=== PATIENT | male | born 1985 | race Caucasian/White ===

== ENCOUNTER 2017-05-15 16:37 | Emergency (ER) | payer OTHER ==
[~2017-05-15] VITALS: Ht 180.3 cm; Wt 81.6 kg
[2017-05-15 16:51] VITALS: BP 136/74
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
== END 2017-05-15 18:17 | disposition home or self-care (01) ==
LOC: ER 16:37
DX: S09.90XA Unspecified injury of head, initial encounter (principal); Y08.89XA Assault by other specified means, initial encounter; Y93.89 Activity, other specified; Y99.8 Other external cause status; Y92.89 Other specified places as the place of occurrence of the external cause
CPT/HCPCS: 70450; 99284-25

== ENCOUNTER 2017-06-30 19:40 | Emergency (ER) | payer OTHER ==
[~2017-06-30] VITALS: Ht 180.3 cm; Wt 83.5 kg
[2017-06-30 19:54] VITALS: BP 127/68
[2017-06-30] MEDS ORDERED: CIPROFLOXACIN HCL 500 MG TABLET PO ONE (20:30)
[2017-06-30] MEDS ORDERED: IBUPROFEN 600 MG TABLET. PO ONE ×2 (20:30→20:38)
[2017-06-30] MEDS ORDERED: CIPR500T94 PO (20:31)
[2017-06-30] MEDS ORDERED: IBUP800T19 PO (20:31)
--- NOTE | 2017-06-30 20:31 | PHYS DOC ---
Past History Past Medical History: No Pertinent History Past Surgical History: Appendectomy Alcohol Use: Rarely Drug Use: None Adult General Chief Complaint Chief Complaint: TESTICULAR PAIN HPI HPI Patient is a 32-year-old male complaining of right testicle pain for about 2 days. No injury. He's never had this before. Denies dysuria, denies discharge. Denies swelling. Patient is in good general health. He does do physical training daily. 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 Review of Systems Review of Systems GI: Denies abdominal pain, nausea, vomiting : Denies dysuria or discharge Allergies Allergies Allergies Coded Allergies Type Severity Reaction Last Updated Verified No Known Drug Allergies 05/15/17 No Physical Exam Physical Exam Constitutional: Well developed, well nourished, no acute distress, non-toxic appearance. Alert, ambulatory without difficulty, warm and dry, no acute distress. HENT: Normocephalic, atraumatic, bilateral external ears normal, nose normal. [ ] Eyes: conjunctiva normal, no discharge. [] Neck: Normal range of motion, no stridor. [] : Normal circumcised male appearance. Right testicle is not enlarged or tender. There is tenderness to palpation of the right epididymis. There is minimal swelling of the right epididymis. No skin color changes or skin abnormalities of the scrotum. No swelling of the scrotum. Skin: Warm, dry, no erythema, no rash. [] Extremities: No tenderness, no cyanosis, no clubbing, ROM intact, no edema. [] Neurologic: Alert and oriented X 3, normal motor function, no focal deficits noted. [] Current Patient Data Vital Signs Vital Signs Date Time Temp Pulse Resp B/P (MAP) Pulse Ox O2 Delivery O2 Flow Rate FiO2 06/30/17 19:54 98.5 54 17 99 EKG EKG [] Radiology/Procedures Radiology/Procedures [] Course & Med Decision Making Course & Med Decision Making Pertinent Labs and Imaging studies reviewed. (See chart for details) [] Dragon Disclaimer Dragon Disclaimer This chart was dictated in whole or in part using Voice Recognition software in a busy, high-work load, and often noisy Emergency Department environment. It may contain unintended and wholly unrecognized errors or omissions. Departure Departure: Impression: Primary Impression: Epididymitis Disposition: 01 HOME, SELF-CARE Condition: STABLE Referrals: BRITTANEY LAY (PCP) Patient Instructions: Epididymitis Additional Instructions: Minimize "jiggling" by laying off of running or PT for a few days, use a supportive undergarments such as a jock strap. Cold packs or ice for inflammation, 15-20 minutes out of every 1-2 hours as you are able. Ibuprofen for pain and inflammation as prescribed. Cipro, antibiotic, for infection. If you are getting worse instead of better, or not better as antibiotics are working after 2-3 days, recheck with your doctor. Scripts Ciprofloxacin Hcl (CIPRO) 500 Mg Tablet 1 TAB PO BID for epididymitis, #20 TAB Prov: ISRRAEL PACHECO MD 06/30/17 Ibuprofen (IBUPROFEN) 800 Mg Tablet 1 TAB PO TID, #30 TAB Prov: ISRRAEL PACHECO MD 06/30/17 ISRRAEL PACHECO MD Jun 30, 2017 20:31
[2017-06-30] MEDS ORDERED: CIPROFLOXACIN HCL 500 MG TABLET ONE (20:38)
== END 2017-06-30 20:45 | disposition home or self-care (01) ==
LOC: ER 19:44
DX: N45.1 Epididymitis (principal)
CPT/HCPCS: 99283

== ENCOUNTER 2018-03-09 19:46 | Emergency (ER) | payer OTHER ==
[~2018-03-09 19:46] MED LIST: CIPR500T94 PO; IBUP800T19 PO
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
[2018-03-09 19:50] VITALS: BP 132/72
[2018-03-09] MEDS ORDERED: LIDOCAINE 2% 20 ML VIAL. ONE (20:01)
[2018-03-09] MEDS ORDERED: LIDOCAINE 2%/EPI 1:100,000 20 ML VIAL. ONE (20:01)
[2018-03-09] MEDS ORDERED: DIPHTH,PERTUSS(ACELL),TET TOX 0.5 ML DISP.SYRIN. VAX IM ONE ×2 (20:09→20:30)
[2018-03-09] MEDS ORDERED: LIDOCAINE 2%/EPI 1:100,000 20 ML VIAL. IJ ONE (20:15)
[2018-03-09] MEDS ORDERED: LIDOCAINE 2% 20 ML VIAL. IJ ONE (20:15)
== END 2018-03-09 20:30 | disposition home or self-care (01) ==
LOC: ER 19:46
DX: S81.811A Laceration without foreign body, right lower leg, initial encounter (principal); W45.8XXA Other foreign body or object entering through skin, initial encounter; Y93.89 Activity, other specified; Y99.8 Other external cause status; Y92.89 Other specified places as the place of occurrence of the external cause
CPT/HCPCS: 12004; 90471; 90715; 99283-25; J2001